=== PATIENT | male | born 1970 | race Caucasian/White ===

== ENCOUNTER 2019-04-15 19:16 | Emergency (ER) | payer SELFPAY ==
[~2019-04-15] VITALS: Ht 160 cm; Wt 93.4 kg
[2019-04-15 19:40] VITALS: Ht 160 cm; Wt 93.4 kg
[2019-04-15 20:55] VITALS: BP 138/74
== END 2019-04-15 20:55 | disposition home or self-care (01) ==
LOC: ED 19:16
DX: I88.9 Nonspecific lymphadenitis, unspecified (principal); L98.9 Disorder of the skin and subcutaneous tissue, unspecified; F17.210 Nicotine dependence, cigarettes, uncomplicated